=== PATIENT | male | born 1960 | race Native Hawaiian/Other Pacific Islander ===

== ENCOUNTER 2018-08-06 05:58 | Day surgery (SDC) | payer OTHER ==
[~2018-08-06] VITALS: Ht 170.2 cm; Wt 95.3 kg
[~2018-08-06 05:58] MED LIST: [UNRECOGNIZED DRUG - REMARK]
[2018-08-06] MEDS ORDERED: ZYL300 PO (07:08)
[2018-08-06] MEDS ORDERED: ACET-1083 PO (07:08)
[2018-08-06] MEDS ORDERED: METO25TA PO (07:08)
[2018-08-06] MEDS ORDERED: IBUP-2213 PO (07:08)
[2018-08-06] MEDS ORDERED: FURO-572 PO (07:08)
[2018-08-06] MEDS ORDERED: DEC1 PO (07:08)
[2018-08-06] MEDS ORDERED: LOSA50TA66 PO (07:08)
[2018-08-06] MEDS ORDERED: LIDOCAINE 2% 100 MG/5 ML UJET TP ONE (08:01)
[2018-08-06] MEDS ORDERED: KETOROLAC 30 MG/ML VIAL ONE (08:01)
== END 2018-08-06 09:15 | disposition home or self-care (01) ==
LOC: MDS 05:58 → MMU 06:02 → MDS 09:15
PROVIDERS: ATTEND Internal Medicine Gastroenterology
DX: D12.0 Benign neoplasm of cecum (principal); I10 Essential (primary) hypertension; M19.90 Unspecified osteoarthritis, unspecified site; M06.9 Rheumatoid arthritis, unspecified; E66.9 Obesity, unspecified; Z68.32 Body mass index [BMI] 32.0-32.9, adult; Z91.048 Other nonmedicinal substance allergy status; Z79.899 Other long term (current) drug therapy; Z79.1 Long term (current) use of non-steroidal anti-inflammatories (NSAID)
CPT/HCPCS: 45380; J1885